=== PATIENT | female | born 1980 | race Caucasian/White ===

== ENCOUNTER → 2018-01-06 | Outpatient (CLI) | payer BC ==
[2018-01-06 08:03] LABS: BASO # 0.1 10^3/uL (0.0-0.2); BASO % 0.8 % (0.0-1.0); EOS # 0.1 10^3/uL (0.0-0.50); EOS % 1.8 % (0.0-3.0); HEMATOCRIT 40.4 % (36.0-47.0); HEMOGLOBIN 13.4 g/dl (12.0-16.0); IMMATURE GRANULOCYTE % 0.4 % (0-3.0); LYMPH # 2.3 10^3/uL (1.5-4.5); LYMPH % 31.4 % (24.0-44.0); MEAN CORPUSCULAR HEMOGLOBIN 29.6 pg (27.0-33.0); MEAN CORPUSCULAR HGB CONC 33.2 g/dl (32.0-36.5); MEAN CORPUSCULAR VOLUME 89.4 fl (80.0-96.0); MONO # 0.5 10^3/uL (0.0-0.8); MONO % 6.7 % (0.0-5.0); NEUTROPHILS # 4.2 10^3/uL (1.8-7.7); NEUTROPHILS % 58.9 % (36.0-66.0); PLATELET COUNT, AUTOMATED 241 10^3/uL (150-450); RED BLOOD COUNT 4.52 10^6/uL (4.00-5.40); RED CELL DISTRIBUTION WIDTH 12.4 % (11.5-14.5); WHITE BLOOD COUNT 7.2 10^3/uL (4.0-10.0)
[2018-01-06 09:04] LABS: ALBUMIN 3.8 GM/DL (3.2-5.2); ALBUMIN/GLOBULIN RATIO 1.09 (1.00-1.93); ALKALINE PHOSPHATASE 82 U/L (45-117); ALT/SGPT 14 U/L (12-78); ANION GAP 8 MEQ/L (8-16); AST/SGOT 12 U/L (7-37); BILIRUBIN,TOTAL 0.5 MG/DL (0.2-1.0); BLOOD UREA NITROGEN 14 MG/DL (7-18); CALCIUM LEVEL 8.6 MG/DL (8.5-10.1); CARBON DIOXIDE LEVEL 27 MEQ/L (21-32); CHLORIDE LEVEL 107 MEQ/L (98-107); CHOLESTEROL LEVEL 171 MG/DL (<200); CHOLESTEROL RISK RATIO 3.638 (<5); FREE T4 1.25 NG/DL (0.76-1.46); GLOMERULAR FILTRATION RATE > 60.0 (>60); GLUCOSE, FASTING 77 MG/DL (70-100); HDL CHOLESTEROL 47 MG/DL (>40); NON-HDL-C 124 MG/DL; POTASSIUM SERUM 3.8 MEQ/L (3.5-5.1); SODIUM LEVEL 142 MEQ/L (136-145); TOTAL PROTEIN 7.3 GM/DL (6.4-8.2); TRIGLYCERIDES LEVEL 95 MG/DL (<150)
== END ==
LOC: M LAB 07:13
DX: Z00.00 Encounter for general adult medical examination without abnormal findings (principal); F41.9 Anxiety disorder, unspecified; E03.9 Hypothyroidism, unspecified
CPT/HCPCS: 84443

== ENCOUNTER → 2018-04-14 | Outpatient (CLI) | payer BC ==
[2018-04-14 10:32] LABS: PROGESTERONE < 0.2 NG/ML
[2018-04-14 10:33] LABS: ESTRADIOL 48.5 PG/ML; FOLLICLE STIMULATING HORMONE 6.9 mIU/mL
[2018-04-14 10:36] LABS: HCG, SERUM QUANTITATIVE < 1.0 MIU/ML
== END ==
LOC: M LAB 08:49
DX: E28.9 Ovarian dysfunction, unspecified (principal)
CPT/HCPCS: 83001

== ENCOUNTER → 2018-04-22 | Outpatient (REF) | payer BC ==
[2018-04-22 10:48] LABS: PROGESTERONE < 0.2 NG/ML
[2018-04-22 10:48] LABS: LUTEINIZING HORMONE 8.5 mIU/mL
[2018-04-22 10:49] LABS: ESTRADIOL 59.8 PG/ML
== END ==
LOC: M LABDRAW1 09:08
DX: E28.9 Ovarian dysfunction, unspecified (principal)
CPT/HCPCS: 83002

== ENCOUNTER → 2018-05-10 | Outpatient (CLI) | payer BC ==
[2018-05-10 07:36] LABS: HCG, SERUM QUANTITATIVE 2 MIU/ML
[2018-05-10 08:02] LABS: PROGESTERONE 11.6 NG/ML
== END ==
LOC: M LAB 06:20
DX: E28.9 Ovarian dysfunction, unspecified (principal)

== ENCOUNTER → 2018-05-16 | Outpatient (REF) | payer BC ==
[2018-05-16 10:38] LABS: LUTEINIZING HORMONE 6.7 mIU/mL
[2018-05-16 10:38] LABS: PROGESTERONE < 0.2 NG/ML
== END ==
LOC: M LABDRAW1 09:28
DX: E28.9 Ovarian dysfunction, unspecified (principal)
CPT/HCPCS: 83002

== ENCOUNTER → 2018-05-23 | Outpatient (REF) | payer BC ==
[2018-05-23 13:21] LABS: PROGESTERONE 0.2 NG/ML
[2018-05-23 13:22] LABS: ESTRADIOL 64.9 PG/ML; LUTEINIZING HORMONE 7.9 mIU/mL
== END ==
LOC: M LABDRAW1 08:43
DX: E28.9 Ovarian dysfunction, unspecified (principal)
CPT/HCPCS: 83002

== ENCOUNTER → 2018-05-25 | Outpatient (REF) | payer BC ==
[2018-05-25 12:41] LABS: PROGESTERONE < 0.2 NG/ML
[2018-05-25 12:42] LABS: ESTRADIOL 118.8 PG/ML; LUTEINIZING HORMONE 7.2 mIU/mL
== END ==
LOC: M LABDRAW1 09:10
DX: E28.9 Ovarian dysfunction, unspecified (principal)

== ENCOUNTER → 2018-06-10 | Outpatient (CLI) | payer BC ==
[2018-06-10 08:37] LABS: HCG, SERUM QUANTITATIVE < 1.0 MIU/ML
[2018-06-10 09:41] LABS: PROGESTERONE 9.3 NG/ML
== END ==
LOC: M LAB 07:34
DX: E28.9 Ovarian dysfunction, unspecified (principal)
CPT/HCPCS: 84702

== ENCOUNTER → 2018-07-04 | Outpatient (REF) | payer BC ==
[2018-07-04 16:00] LABS: HCG, SERUM QUANTITATIVE < 1.0 MIU/ML
== END ==
LOC: M LABDRAW1 15:17
DX: E28.9 Ovarian dysfunction, unspecified (principal)
CPT/HCPCS: 84702

== ENCOUNTER 2023-05-24 08:36 | Emergency (ER) | payer BC ==
[~2023-05-24] VITALS: Ht 162.6 cm; Wt 97.9 kg
[2023-05-24 09:32] LABS: BASO # 0.1 10^3/uL (0.0-0.2); BASO % 0.8 % (0.0-1.0); EOS # 0.2 10^3/uL (0.0-0.5); EOS % 1.9 % (0.0-3.0); HEMATOCRIT 41.6 % (36.0-47.0); HEMOGLOBIN 13.8 g/dl (12.0-15.5); LYMPH # 1.8 10^3/uL (1.5-5.0); LYMPH % 21.7 % (24.0-44.0); MEAN CORPUSCULAR HEMOGLOBIN 30.3 pg (27.0-33.0); MEAN CORPUSCULAR HGB CONC 33.2 g/dl (32.0-36.5); MEAN CORPUSCULAR VOLUME 91.2 fl (80.0-96.0); MONO # 0.5 10^3/uL (0.0-0.8); NEUTROPHILS # 5.8 10^3/uL (1.5-8.5); NEUTROPHILS % 68.8 % (36.0-66.0); PLATELET COUNT, AUTOMATED 245 10^3/uL (150-450); RED BLOOD COUNT 4.56 10^6/uL (4.00-5.40); WHITE BLOOD COUNT 8.5 10^3/uL (4.0-10.0)
[2023-05-24 09:47] LABS: AMORPHOUS SEDIMENT SMALL (NEGATIVE); APPEARANCE, URINE CLOUDY (CLEAR); BACTERIA, URINE AUTO NEGATIVE (NEGATIVE); BILIRUBIN, URINE AUTO NEGATIVE (NEGATIVE); BLOOD, URINE BLOOD 2+ (NEGATIVE); COLOR, URINE YELLOW (YELLOW); GLUCOSE, URINE (UA) AUTO NEGATIVE (NEGATIVE); KETONE, URINE AUTO NEGATIVE (NEGATIVE); LEUKOCYTE ESTERASE, URINE AUTO NEGATIVE (NEGATIVE); MUCUS, URINE SMALL (NEGATIVE); NITRITE, URINE AUTO NEGATIVE (NEGATIVE); PROTEIN, URINE AUTO NEGATIVE (NEGATIVE); RBC, URINE AUTO 3 /HPF (0-3); SPECIFIC GRAVITY URINE AUTO 1.014 (1.002-1.035); SQUAMOUS EPITHELIAL CELL UR AU 2 /HPF (0-6); UROBILINOGEN, URINE AUTO 0.2 mg/dL (0.0-2.0); WBC, URINE AUTO 3 /HPF (0-3)
[2023-05-24 14:10] VITALS: BP 152/82; TEMP 97.8; O2SAT 99
== END 2023-05-24 14:15 | disposition home or self-care (01) ==
LOC: M ED 08:36
DX: O20.8 Other hemorrhage in early pregnancy (principal); Z3A.01 Less than 8 weeks gestation of pregnancy; O99.281 Endocrine, nutritional and metabolic diseases complicating pregnancy, first trimester; Z91.018 Allergy to other foods

== ENCOUNTER 2023-05-25 06:14 | Emergency (ER) | payer BC ==
[~2023-05-25] VITALS: Ht 162.6 cm; Wt 97.3 kg
[2023-05-25 07:51] LABS: HEMATOCRIT 41.2 % (36.0-47.0); HEMOGLOBIN 13.9 g/dl (12.0-15.5); MEAN CORPUSCULAR HEMOGLOBIN 30.3 pg (27.0-33.0); MEAN CORPUSCULAR HGB CONC 33.7 g/dl (32.0-36.5); PLATELET COUNT, AUTOMATED 229 10^3/uL (150-450); RED BLOOD COUNT 4.58 10^6/uL (4.00-5.40); WHITE BLOOD COUNT 12.8 10^3/uL (4.0-10.0)
[2023-05-25 10:18] VITALS: BP 144/95; TEMP 98.6; O2SAT 100
== END 2023-05-25 10:26 | disposition home or self-care (01) ==
LOC: M ED 06:14
DX: O20.0 Threatened abortion (principal); Z3A.01 Less than 8 weeks gestation of pregnancy; Z91.018 Allergy to other foods

== ENCOUNTER → 2023-05-27 | Outpatient (CLI) | payer BC | LOC: M LAB 13:57 | PROVIDERS: ATTEND Emergency Medicine | DX: O20.0 Threatened abortion (principal) ==